=== PATIENT | male | born 1985 | race Caucasian/White ===

== ENCOUNTER 2016-06-19 12:50 | Emergency (ER) | payer OTHER ==
[2016-06-19] MEDS ORDERED: ONDANSETRON 4 MG/2 ML VIAL IVP STA (13:22)
[2016-06-19] MEDS ORDERED: DIPHENOX/ATROPINE 2.5/0.025 MG TABLET PO STA (13:22)
[2016-06-19] MEDS ORDERED: SODIUM CHLORIDE 0.9% 1,000 ML IV ONE ×3 (13:22→13:29)
[2016-06-19] MEDS ORDERED: KETOROLAC 60 MG/2 ML VIAL IVP STA (13:25)
[2016-06-19] MEDS ORDERED: ONDANSETRON 4 MG/2 ML VIAL ONE (13:29)
[2016-06-19] MEDS ORDERED: DIPHENOX/ATROPINE 2.5/0.025 MG TABLET PO ONE (13:29)
[2016-06-19] MEDS ORDERED: KETOROLAC 30 MG/ML VIAL ONE (13:29)
== END 2016-06-19 15:25 | disposition home or self-care (01) ==
DX: A08.4 Viral intestinal infection, unspecified (principal); A09 Infectious gastroenteritis and colitis, unspecified
CPT/HCPCS: 36415; 80053; 83690; 96374; 96375; 99284; A9270